=== PATIENT | female | born 1990 | race African-American/Black ===

== ENCOUNTER 2017-09-13 02:28 | Emergency (ER) | payer MEDICAID, OTHER ==
[2017-09-13 02:38] VITALS: BP 135/80
--- NOTE | 2017-09-13 03:26 | ER Document Report ---
ED General - General Chief Complaint: Flu Symptoms Stated Complaint: FLU LIKE SYMPTOMS Time Seen by Provider: 09/13/17 02:50 Notes: Patient is a 27-year-old female presents with complaint flulike symptoms. She says she has had some congestion and body aches and a sore throat. No vomiting. No diarrhea. She says symptoms of ongoing for 4 days. Not much cough. Mild headache. She says that she has not had a high fever. 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 She has no other complaints at this time. TRAVEL OUTSIDE OF THE [place] IN LAST 30 DAYS: No - Related Data Allergies/Adverse Reactions: No Known Allergies Allergy (Verified 09/13/17 03:42) Past Medical History - Social History Smoking Status: Never Smoker Chew tobacco use (# tins/day): No Frequency of alcohol use: None Drug Abuse: None Family History: Reviewed & Not Pertinent Patient has suicidal ideation: No Patient has homicidal ideation: No Renal/ Medical History: Denies: Hx Peritoneal Dialysis Review of Systems - Review of Systems Notes: My Normal Review Basic REVIEW OF SYSTEMS: CONSTITUTIONAL : Body aches sore throat. EENT: Sore throat. RESPIRATORY: Denies cough, cold, or chest congestion. Denies shortness of breath, difficulty breathing, or wheezing. GASTROINTESTINAL: Denies abdominal pain. Denies nausea, vomiting, or diarrhea. Denies constipation. Last BM: LMP: MUSCULOSKELETAL: Body aches SKIN: Denies rash or skin lesions. NEUROLOGICAL: Denies altered mental status or loss of consciousness. mild headache. Denies weakness or paralysis or loss of use of either side. Denies problems with gait or speech. Denies sensory or motor loss. ALL OTHER SYSTEMS REVIEWED AND NEGATIVE. Physical Exam - Vital signs Vitals: Temp Pulse Resp BP Pulse Ox 98.2 F 82 18 135/80 H 97 09/13/17 02:29 09/13/17 02:29 09/13/17 02:29 09/13/17 02:29 09/13/17 02:29 - Notes Notes: General Appearance: Well nourished, alert, cooperative, no acute distress, no obvious discomfort. Vitals: reviewed, See vital signs table. Head: no swelling or tenderness to the head Eyes: PERRL, EOMI, Conjuctiva clear Mouth: No decreasd moisture Throat: No tonsillar inflammation, No airway obstruction, No lymphadenopathy Lungs: No wheezing, No rales, No rhonci, No accessory muscle use, good air exchange bilaterally. Heart: Normal rate, Regular rythm, No murmur, no rub Abdomen: Normal BS, soft, No rigidity, No abdominal tenderness, No guarding, no rebound, no abdominal masses, no organomegaly Extremities: strength 5/5 in all extremities, good pulses in all extremities, no swelling or tenderness in the extremities, no edema. Skin: warm, dry, appropriate color, no rash Neuro: speech clear, oriented x 3, normal affect, responds appropriately to questions. Course - Re-evaluation Re-evalutation: 09/14/17 00:26 Patient is very well-appearing. She is in no distress. She seems to have a viral illness with her sore throat and body aches. Her throat is not incredibly red. She does not have enlarged tonsils or exudates. She does not have a fever. I do not think she needs testing or treatment for strep throat based on her exam in the absence of fever. Feel that she is safe to be discharged home. I will give her Magic mouthwash to help with her sore throat. Encouraged her return to ER if she starts developing fevers over 101, has vomiting, severe headache, or feels that she is worsening in any way. Dictation of this chart was performed using voice recognition software; therefore, there may be some unintended grammatical errors. - Vital Signs Vital signs: Temp Pulse Resp BP Pulse Ox 98.2 F 82 18 135/80 H 97 09/13/17 02:29 09/13/17 02:29 09/13/17 02:29 09/13/17 02:29 09/13/17 02:29 Discharge - Discharge Clinical Impression: Sore throat URI (upper respiratory infection) Qualifiers: URI type: unspecified URI Qualified Code(s): J06.9 - Acute upper respiratory infection, unspecified Condition: Good Disposition: HOME, SELF-CARE Additional Instructions: Please take over the counter Pseudophedrine or Phenylephrine. Please use the magic mouth wash to help with your sore throat. Please rest over the next 2 days. Please return to the ER immediately if you develop fevers, vomiting, difficulty breathing, or feel that you are worsening. Prescriptions: Nystatin/Dexameth/Diphen [Magic Mouthwash ([facility] Formula) Susp] 5 ml PO QID #120 ml Forms: Return to Work
== END 2017-09-13 03:32 | disposition home or self-care (01) ==
LOC: ER 02:28
DX: J06.9 Acute upper respiratory infection, unspecified (principal); J02.9 Acute pharyngitis, unspecified; R09.81 Nasal congestion; M79.1 Myalgia; R50.9 Fever, unspecified
CPT/HCPCS: 99283

== ENCOUNTER 2017-11-05 01:52 | Emergency (ER) | payer BC, OTHER ==
[2017-11-05] MEDS ORDERED: NORMAL SALINE 1000 ML 1,000 ML IV ONE (02:15)
[2017-11-05 02:53] LABS: ABSOLUTE MONOCYTES (AUTO) 0.4 10^3/uL (0.1-1.4); ABSOLUTE NEUT (AUTO) 4.6 10^3/uL (1.7-8.2); BASOPHILS % (AUTO) 0.5 % (0-2); EOSINOPHILS % (AUTO) 0.6 % (0-6); HEMATOCRIT 36.7 % (36.0-47.0); HEMOGLOBIN 12.4 g/dL (12.0-15.5); LYMPHOCYTES % (AUTO) 28.3 % (13-45); MEAN CORPUSCULAR HEMOGLOBIN 28.1 pg (27.0-33.4); MEAN CORPUSCULAR HGB CONC 33.9 g/dL (32.0-36.0); MEAN CORPUSCULAR VOLUME 83 fl (80-97); MONOCYTES % (AUTO) 5.1 % (3-13); PLATELET COUNT 239 10^3/uL (150-450); RED BLOOD COUNT 4.43 10^6/uL (3.72-5.28); RED CELL DISTRIBUTION WIDTH 14.5 % (11.5-14.0); SEGMENTED NEUTROPHILS % (AUTO) 65.5 % (42-78); TOTAL CELLS COUNTED % (AUTO) 100 %
[2017-11-05 03:05] LABS: ANION GAP 11 (5-19); BLOOD UREA NITROGEN 12 mg/dL (7-20); CALCIUM 10.2 mg/dL (8.4-10.2); CARBON DIOXIDE 24 mmol/L (22-30); CHLORIDE 106 mmol/L (98-107); GLUCOSE 98 mg/dL (75-110); POTASSIUM 3.8 mmol/L (3.6-5.0); SODIUM 140.7 mmol/L (137-145)
--- NOTE | 2017-11-05 03:21 | ER Document Report ---
ED General - General Chief Complaint: General Weakness Stated Complaint: WEAKNESS Time Seen by Provider: 11/05/17 02:14 Notes: Patient is a 27-year-old female without past medical history who presents with fatigue, generalized weakness, shakiness and feeling generally unwell. 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 She notes that she has had less than 4 hours of sleep each night over the past 3 nights. She states that she feels extremely tired but then when she tries to lay down to go to sleep she is unable to fall asleep. She denies any focal complaints at this time stating that she feels she has just overworked herself and feels extremely exhausted. She came here from work today. She denies a history of similar symptoms in the past. She has not seen her primary doctor regarding today's concerns. Nothing improves or worsens her symptoms. TRAVEL OUTSIDE OF THE [place] IN LAST 30 DAYS: No - Related Data Allergies/Adverse Reactions: No Known Allergies Allergy (Verified 09/13/17 03:42) Past Medical History - General Information source: Patient - Social History Smoking Status: Never Smoker Frequency of alcohol use: None Drug Abuse: None Lives with: Family Family History: Reviewed & Not Pertinent Patient has suicidal ideation: No Patient has homicidal ideation: No Renal/ Medical History: Denies: Hx Peritoneal Dialysis Review of Systems - Review of Systems Notes: Constitutional: Negative for fever. Positive for generalized fatigue HENT: Negative for sore throat. Eyes: Negative for visual changes. Cardiovascular: Negative for chest pain. Respiratory: Negative for shortness of breath. Gastrointestinal: Negative for abdominal pain, vomiting or diarrhea. Genitourinary: Negative for dysuria. Musculoskeletal: Negative for back pain. Skin: Negative for rash. Neurological: Negative for headaches, weakness or numbness. 10 point ROS negative except as marked above and in HPI. Physical Exam - Vital signs Interpretation: Normal Notes: PHYSICAL EXAMINATION: GENERAL: Well-appearing, well-nourished and in no acute distress. HEAD: Atraumatic, normocephalic. EYES: Pupils equal round and reactive to light, extraocular movements intact, sclera anicteric, conjunctiva are normal. ENT: nares patent, oropharynx clear without exudates. Moist mucous membranes. NECK: Normal range of motion, supple without lymphadenopathy LUNGS: Breath sounds clear to auscultation bilaterally and equal. No wheezes rales or rhonchi. HEART: Regular rate and rhythm without murmurs ABDOMEN: Soft, nontender, normoactive bowel sounds. No guarding, no rebound. No masses appreciated. EXTREMITIES: Normal range of motion, no pitting or edema. No cyanosis. NEUROLOGICAL: No focal neurological deficits. Moves all extremities spontaneously and on command. PSYCH: Normal mood, normal affect. SKIN: Warm, Dry, normal turgor, no rashes or lesions noted. Course - Re-evaluation Re-evalutation: 11/05/17 03:16 Patient presents with multiple vague complaints that did not appear to be concerning for any acute life-threatening pathology. I suspect the patient's symptoms are secondary to her having a very poor sleep schedule stating that she has slept less than 4 hours for at least 3 nights in a row. This would explain her generalized fatigue, moderate anxiety and generalized weakness. She has no focal neurologic deficits on examination and denies any focal neurologic complaint. Vitals are within normal limits at triage and at time of discharge. Physical examination is unremarkable. Patient has tolerated oral intake without difficulty. Patient was not noted to be in distress at any point during their ER visit. At this time, based on the reassuring evaluation, I do not suspect an acute MS, pulmonary embolus, aortic dissection, acute intra- abdominal pathology, stroke, or sepsis. I have prescribed the patient trazodone to assist with her insomnia and have encouraged good sleep hygiene. Will discharge with return precautions and follow-up recommendations. Verbal discharge instructions given a the bedside and opportunity for questions given. Medication warnings reviewed. Patient is in agreement with this plan and has verbalized understanding of return precautions and the need for primary care follow-up in the next 24-72 hours. - Laboratory Result Diagrams: 11/05/17 02:37 11/05/17 02:37 Laboratory results interpreted by me: 11/05/17 02:37 RDW 14.5 H - EKG Interpretation by Me Additional EKG results interpreted by me: 11/05/17 03:18 Normal sinus rhythm. Rate 82. No ST elevations or depressions. QTC is 468. Discharge - Discharge Clinical Impression: Generalized weakness Insomnia Qualifiers: Insomnia type: unspecified Qualified Code(s): G47.00 - Insomnia, unspecified Fatigue Qualifiers: Fatigue type: unspecified Qualified Code(s): R53.83 - Other fatigue Condition: Good Disposition: HOME, SELF-CARE Additional Instructions: Please be sure to get at least 6-7 hours of sleep at night. Take trazodone approximately 30 minutes before you plan to go to sleep. Please be sure to drink plenty of fluids as you were dehydrated today. Your labs are otherwise unremarkable. Please follow-up with your primary care doctor in the next several days. Please return to the emergency room immediately if you experience any concerning symptoms including high fevers, severe headache, chest pain, difficulty breathing, abdominal pain, slurred speech, numbness or weakness in your arms or legs, or any other symptom that concerns you. Prescriptions: Trazodone HCl 100 mg PO QHS #30 tablet Forms: Return to Work
[2017-11-05 03:33] VITALS: BP 117/67
--- NOTE | 2017-11-05 08:51 | EKG REPORT ---
SEVERITY:- NORMAL ECG - SINUS RHYTHM : Confirmed by: Sisi Benavides 05-Nov-2017 08:51:17
== END 2017-11-05 03:33 | disposition home or self-care (01) ==
LOC: ER 01:52
DX: G47.00 Insomnia, unspecified (principal); R53.83 Other fatigue; R53.1 Weakness; F41.9 Anxiety disorder, unspecified
CPT/HCPCS: 93005; 99285; 96360; 36415; 84703; 85025; 80048; 93010; J7030

== ENCOUNTER → 2018-10-11 | Outpatient (CLI) | payer SELFPAY | LOC: LAB 20:02 | PROVIDERS: ATTEND Nurse Practitioner Family | DX: R82.71 Bacteriuria (principal) | CPT/HCPCS: 87086 ==